=== PATIENT | male | born 1995 | race Two or more races ===

== ENCOUNTER 2021-12-04 06:40 | Day surgery (SDC) | payer OTHER ==
[~2021-12-04 06:40] MED LIST: COZAAR25 MG PO
== END 2021-12-04 14:37 | disposition home or self-care (01) ==
LOC: CIR.AMB 06:40
PROVIDERS: ATTEND Urology
DX: N47.1 Phimosis (principal); N47.7 Other inflammatory diseases of prepuce; I10 Essential (primary) hypertension; Z86.16 Personal history of COVID-19; F12.90 Cannabis use, unspecified, uncomplicated; Z20.820 Contact with and (suspected) exposure to varicella